=== PATIENT | male | born 1955 | race Caucasian/White ===

== ENCOUNTER 2023-05-31 17:30 | Emergency (ER) | payer MEDICARE, SELFPAY ==
--- NOTE | ~2023-05-31 | XR_ITS ---
Clinical Indication: Chest pain PA and lateral views of the chest: Comparison: None Findings: The lungs are clear, without evidence of focal consolidation or pleural effusion. Cardiome diastinal silhouette is unremarkable, status post median sternotomy. Bones and soft tissues are unrem arkable. Impression: Clear lungs. Reviewed, dictated and finalized at location . Impression: Clear lungs.
[2023-05-31 17:56] VITALS: BP 123/88; PULSE 109; RESP 16; TEMP 36.8; O2SAT 97
--- NOTE | 2023-05-31 18:40 | ED.URI ---
HPI - URI/Sore Throat General Chief Complaint: Upper Respiratory Infection Stated Complaint: difficulty breathing Time Seen by Provider: 05/31/23 18:40 Source: patient Mode of arrival: ambulatory Limitations: no limitations History of Present Illness HPI Narrative: 67-year-old male presented for complaint of left posterior lower rib pain for about 2-3 days. Pain is described as dull ache, intermittent, wraps to under both breasts. states it feels similar as to when he had pneumonia about 3 months ago. He currently denies sob, wheezing, cough, fatigue, or fever. Not taking anything for symptoms. Patient is a history of diabetes and CHF, status post heart transplant 2018 Related Data Home Medications Medication Instructions Recorded Confirmed albuterol sulfate 90 mcg/actuation inhalation 05/31/23 aerosol inhaler colchicine 0.6 mg tablet mg 05/31/23 empagliflozin 25 mg tablet mg 05/31/23 (Jardiance) gabapentin 300 mg capsule mg 05/31/23 insulin NPH isoph U-100 human 100 unit subcut 05/31/23 unit/mL subcutaneous suspension (Novolin N NPH U-100 Insulin isophane) mirtazapine 15 mg tablet mg 05/31/23 mycophenolate mofetil 250 mg mg PO 05/31/23 capsule mycophenolate mofetil 250 mg mg PO 05/31/23 capsule oxybutynin chloride 15 mg mg PO 05/31/23 tablet,extended release 24 hr pantoprazole 40 mg tablet,delayed mg PO 05/31/23 05/31/23 release pravastatin 40 mg tablet mg 05/31/23 tacrolimus 1 mg capsule, mg 05/31/23 immediate-release tramadol 50 mg tablet mg 05/31/23 vibegron 75 mg tablet (Gemtesa) mg 05/31/23 Allergies Allergy/AdvReac Type Severity Reaction Status Date / Time acetaminophen Allergy Other Verified 05/31/23 18:37 [From Tylenol-Codeine #3] codeine Allergy Other Verified 05/31/23 18:37 [From Tylenol-Codeine #3] Review of Systems Review of Systems: CONSTITUTIONAL: Denies body aches, fever, chills, or sweats. EYES: Denies visual changes, redness, or discharge. ENT: Denies rhinorrhea, congestion, sore throat, or otalgia. CARDIOVASCULAR: Denies chest pain, palpitations, or edema. RESPIRATORY: Denies cough, sob, wheezing. GASTROINTESTINAL: Denies abdominal pain, nausea, vomiting, or diarrhea. GENITOURINARY: Denies dysuria or hematuria. SKIN: Denies rash, itching, or wounds. MUSCULOSKELETAL: Reports back pain, denies joint pain, or myalgia. NEUROLOGIC: Denies headache, numbness, tingling, or weakness. PSYCH: Denies depression or anxiety. All systems reviewed & are unremarkable except as noted in HPI and below FORMERLY [facility], [facility] Past Medical History Medical History (Updated 05/31/23 @ 21:08 by Jeana Sullivan, GEETA) CHF (congestive heart failure) Diabetes type 2, controlled Heart transplant recipient Comments At time of signature, I have reviewed and agree with nursing past medical, surgical, social and family history unless otherwise noted. Please see nursing chart for further information. There is no relevant family history pertinent to the presenting complaint Exam Narrative: GENERAL: Well-appearing, in no acute distress. EYES: EOMI. No redness or drainage. Conjunctivae normal. ENT: Mucous membranes pink and moist. No rhinorrhea. TMs normal bilaterally. Throat normal. Uvula midline. NECK: Normal AROM. Supple. CHEST: No respiratory distress. Wheezing to all young. HEART: Regular rate and rhythm. No murmur appreciated. ABDOMEN: Soft, nontender, nondistended, normal active bowel sounds. MUSC: Normal range of motion. No edema. Nontender left lower back with palpation SKIN: Warm, dry, no rash. Capillary refill normal. Normal skin turgor. NEURO: Alert and oriented x3. Gait steady. PSYCH: Normal affect. Talkative. Course Course Emergency Course: Patient is aware of diagnosis, understands and agrees to treatment plan. Anticipatory guidance given. Patient agrees to follow-up as directed and is aware of reasons to seek care at the
== END 2023-05-31 19:00 | disposition home or self-care (01) ==
PROVIDERS: Emergency Provider Nurse Practitioner Family; PCP Family Medicine
DX: M54.9 Dorsalgia, unspecified (principal); I11.0 Hypertensive heart disease with heart failure; I50.9 Heart failure, unspecified; E11.9 Type 2 diabetes mellitus without complications; I25.10 Atherosclerotic heart disease of native coronary artery without angina pectoris; Z94.1 Heart transplant status; M19.90 Unspecified osteoarthritis, unspecified site
CPT/HCPCS: 71046; 99213; G0463

== ENCOUNTER 2024-06-24 09:32 | Emergency (ER) | payer MEDICARE, SELFPAY ==
--- NOTE | ~2024-06-24 | CT_ITS ---
EXAMINATION: CT brain wo con DATE: 06/24/2024 13:18 INDICATION: Fall, head trauma. Left forehead hematoma. Patient on blood thinners. TECHNIQUE: Computed tomography (CT) of the head was performed without intravenous contrast. The mA wa s adjusted according to patient size. Iterative reconstruction technique was employed. Exam dose: 60 5.33 mGy-cm total exam DLP. COMPARISON: None FINDINGS: Bilateral carotid siphon internal carotid artery calcifications. Nonspecific diminished att enuation of cerebral white matter, likely due to chronic small vessel ischemic changes. There is central and cortical cerebral and cerebellar atrophy. No intracranial mass lesion or hemorrhage or cerebrovascular accident is detected. No subdural or epidural hematoma. No cephalohematoma or skull fracture or bone destruction is evident. The mastoid air cells and includ ed paranasal sinuses are unremarkable. IMPRESSION: No skull fracture or acute intracranial finding Reviewed, dictated and finalized at [facility]. Reviewed, dictated and finalized at location [facility].
--- NOTE | ~2024-06-24 | XR_ITS ---
XR forearm LT 2V DATE: 06/24/2024 12:55 INDICATION: Fall last night. Multiple skin tears. Pain. TECHNIQUE: 2 views COMPARISON: None FINDINGS: No fracture or dislocation of the radius or ulna. No periosteal reaction or bone destructio n. Prominent distal ulnar arterial calcification. IMPRESSION: No fracture or dislocation of the left forearm Reviewed, dictated and finalized at location [facility].
--- NOTE | ~2024-06-24 | CT_ITS ---
EXAMINATION: CT facial & cervical spine wo DATE: 06/24/2024 13:18 INDICATION: Fall. Left forehead hematoma. Patient on blood thinners. TECHNIQUE: Computed tomography (CT) of the facial bones and maxillofacial region and cervical spine w as performed without intravenous contrast. Automated exposure control and iterative reconstruction te chnique were employed. Exam dose: 244.77 mGy-cm total exam DLP. COMPARISON: None. FINDINGS: The orbital rims and garcia, frontozygomatic sutures, zygomatic arches, nasal bones and ante rior nasal spine are all intact. No orbital blowout fracture. The maxillary bones and pterygoid plates are intact. No mandibular fracture or dislocation. The paranasal sinuses and mastoid air cells are normally developed and aerated. Normal alignment at the atlantoaxial joints. C1 and C2 are normally aligned and the odontoid process is intact. No fracture or dislocation or locked facet or prevertebral soft tissue swelling. There is moderate degenerative disc disease throughout the cervical spine. There are multiple indeterminate opacities in the minimally included upper lung zones. These might be due to pulmonary granulomatous disease, scarring, but primary lung malignancy or metastatic disease cannot be excluded. IMPRESSION: No facial fracture No cervical spine fracture, dislocation or locked facet Moderate degenerative disc disease of the cervical spine Clinical indeterminate upper lung opacities Reviewed, dictated and finalized at [facility]. Reviewed, dictated and finalized at location [facility].
--- NOTE | ~2024-06-24 | XR_ITS ---
XR wrist LT min 3V DATE: 06/24/2024 12:55 INDICATION: Fall last night. Pain. TECHNIQUE: 4 views COMPARISON: None FINDINGS: No fracture or dislocation, periosteal reaction or bone destruction. There is osteophytic change, particularly at the first and second metacarpophalangeal joints. No eros lia change. Prominent arterial calcification of the distal forearm. IMPRESSION: No fracture or dislocation Osteoarthritis Reviewed, dictated and finalized at location J.
[2024-06-24 09:53] VITALS: BP 104/85; PULSE 105; RESP 20; TEMP 36.6; O2SAT 99
[2024-06-24 12:36] VITALS: BP 110/78; PULSE 97; RESP 16; TEMP 36.6; O2SAT 100
--- NOTE | 2024-06-24 12:36 | ED.FALL ---
HPI - Fall General Chief Complaint: Fall Stated Complaint: fall last night, [place], left arm injury Time Seen by Provider: 06/24/24 12:15 History of Present Illness HPI Narrative: 69-year-old male presenting to the emergency department for evaluation after having a ground level fall last night. Patient states he had a mechanical fall by missing a step and did strike his face but had no loss consciousness. Patient does have a prior history of a cardiac transplant in 2018. Patient does have a contusion to the left eye multiple skin tears and increased pain with range of motion of the left forearm. Related Data Home Medications Medication Instructions Recorded Confirmed albuterol sulfate 90 mcg/actuation inhalation 05/31/23 aerosol inhaler colchicine 0.6 mg tablet mg 05/31/23 empagliflozin 25 mg tablet mg 05/31/23 (Jardiance) gabapentin 300 mg capsule mg 05/31/23 insulin NPH isoph U-100 human 100 unit subcut 05/31/23 unit/mL subcutaneous suspension (Novolin N NPH U-100 Insulin isophane) mirtazapine 15 mg tablet mg 05/31/23 mycophenolate mofetil 250 mg mg PO 05/31/23 capsule mycophenolate mofetil 250 mg mg PO 05/31/23 capsule oxybutynin chloride 15 mg mg PO 05/31/23 tablet,extended release 24 hr pantoprazole 40 mg tablet,delayed mg PO 05/31/23 05/31/23 release pravastatin 40 mg tablet mg 05/31/23 tacrolimus 1 mg capsule, mg 05/31/23 immediate-release tramadol 50 mg tablet mg 05/31/23 vibegron 75 mg tablet (Gemtesa) mg 05/31/23 Allergies Allergy/AdvReac Type Severity Reaction Status Date / Time acetaminophen Allergy Other Verified 05/31/23 18:37 [From Tylenol-Codeine #3] codeine Allergy Other Verified 05/31/23 18:37 [From Tylenol-Codeine #3] Review of Systems Review of Systems: All systems reviewed & are unremarkable except as noted in HPI and below PMFSH Past Medical History Medical History (Updated 06/24/24 @ 13:47 by Flip Oneal MD) CHF (congestive heart failure) Diabetes type 2, controlled Heart transplant recipient Exam Narrative: APPEARANCE: Well appearing, no pain, no distress, well-nourished. HEAD: normocephalic, contusion to left eye. EYES: PERRLA/EOMI, conjunctivae clear. NOSE: Normal no drainage EARS:TMS clear with good light reflex. THROAT: Pharynx clear, no exudate. NECK: Supple. No adenopathy, no masses. RESPIRATORY: Airway patent, respirations nonlabored. Clear to auscultation bilaterally, no rales, rhonchi, wheezing. CARDIOVASCULAR: Regular rate and rhythm without murmurs rubs or gallops. ABDOMINAL: Soft, nontender, nondistended, normal bowel sounds MUSCULOSKELETAL: Tenderness to palpation of left forearm and wrist NEURO: Alert. Cranial nerves II through XII intact. Good gait. Good coordination SKIN: Multiple skin tears Course Course Emergency Course: Patient was updated on the results of his workup was comfortable the plan for discharge home. Vital Signs Vital signs: Vital Signs Temperature 97.9 F 06/24/24 09:53 Pulse Rate 105 H 06/24/24 09:53 Respiratory Rate 20 06/24/24 09:53 Blood Pressure 104/85 06/24/24 09:53 Pulse Oximetry 99 06/24/24 09:53 Oxygen Delivery Room Air 06/24/24 09:53 Temperature 97.9 F 06/24/24 12:36 Pulse Rate 97 06/24/24 12:36 Respiratory Rate 16 06/24/24 12:36 Blood Pressure 110/78 06/24/24 12:36 Pulse Oximetry 100 06/24/24 12:36 Oxygen Delivery Room Air 06/24/24 12:36 MDM - Fall MDM Narrative Medical decision making narrative: 69-year-old male present to the emergency department for evaluation after having a ground level fall. Patient had negative CT of the brain cervical spine and facial bones. Wrist and forearm were also negative. Patient's wounds were dressed. Patient was comfortable plan for discharge and close follow-up. Patient is able ambulate at his baseline. Differential Diagnosis Differential diagnosis: Likely other (Subdural
== END 2024-06-24 13:56 | disposition home or self-care (01) ==
PROVIDERS: Emergency Provider Emergency Medicine
DX: S00.12XA Contusion of left eyelid and periocular area, initial encounter (principal); M79.632 Pain in left forearm; T14.8XXA Other injury of unspecified body region, initial encounter; I50.9 Heart failure, unspecified; E11.9 Type 2 diabetes mellitus without complications; Z94.1 Heart transplant status; W18.30XA Fall on same level, unspecified, initial encounter
CPT/HCPCS: 70450; 70486; 72125; 73090; 73110; 99284; A4565